=== PATIENT | male | born 1985 | race Hispanic/Latino ===

== ENCOUNTER 2017-12-20 08:53 | Emergency (ER) | payer MEDICAID ==
[2017-12-20 09:02] VITALS: BP 117/77; PULSE 89; RESP 20; TEMP 98.3; O2SAT 97
--- NOTE | 2017-12-20 09:23 | C.PDOC ---
History Of Present Illness 32 year old male with no significant past medical history presented with left wrist pain. Pt denies any fall or trauma but admits to lifting boxes at work. He denies any numbness or weakness. He has no skin discoloration or swelling. Chief Complaint (Nursing): Upper Extremity Problem/Injury History Per: Patient Onset/Duration Of Symptoms: Days, Sudden Onset Current Symptoms Are (Timing): Still Present Pain Scale Rating Of: 7 Recent travel outside of the [place]: No Additional History Per: Patient Past Medical History Reviewed: Historical Data, Nursing Documentation, Vital Signs Vital Signs: Last Vital Signs Temp 98.3 F 12/20/17 09:00 Pulse 89 12/20/17 09:00 Resp 20 12/20/17 09:00 BP 117/77 12/20/17 09:00 Pulse Ox 97 12/20/17 09:00 - Medical History PMH: No Chronic Diseases, Seizures Surgical History: No Surg Hx Family History: States: Unknown Family Hx - Social History Hx Tobacco Use: Yes Hx Alcohol Use: No Hx Substance Use: No - Immunization History Hx Tetanus Toxoid Vaccination: No Hx Influenza Vaccination: No Hx Pneumococcal Vaccination: No Review Of Systems Musculoskeletal: Positive for: Arm Pain, Other (left wrist pain ) Neurological: Negative for: Weakness, Numbness Physical Exam - Physical Exam Appears: Well Skin: Normal Color Head: Atraumatic Eye(s): bilateral: Normal Inspection, PERRL, EOMI Ear(s): Bilateral: Normal Nose: Normal Tongue: Normal Appearing Lips: Normal Appearing Gingiva: Normal Appearing Throat: Normal Neck: Normal Lymphatic: Deferred Chest: Symmetrical Cardiovascular: Rhythm Regular Respiratory: Normal Breath Sounds Gastrointestinal/Abdominal: Normal Exam Rectal: Deferred Back: Normal Inspection Extremity: Normal ROM Extremity: Left: Bony Point Tenderness, Bilateral: Atraumatic Pulses: Left Carotid: Normal, Right Carotid: Normal Neurological/Psych: Oriented x3, Normal Speech, Normal Cognition, Normal Cranial Nerves, Normal Motor, Normal Sensation, Normal Reflexes Gait: Steady Extremity: Right: No Drift, Left: No Drift ED Course And Treatment O2 Sat by Pulse Oximetry: 97 (on RA) Pulse Ox Interpretation: Normal - Other Rad left wrist pain X-Ray: Viewed By Me, Read By Radiologist Interpretation: Date of service: 12/20/2017. PROCEDURE: Left Wrist Radiographs. . HISTORY: Left wrist pain. COMPARISON: None. FINDINGS: BONES: Normal. No fracture. JOINTS: Normal. No dislocation. SOFT TISSUES: Normal. OTHER FINDINGS: None. IMPRESSION: Normal left wrist radiographs. Comments: Consider more sensitive evaluation with MRI of the left wrist if clinically indicated Disposition - Disposition Disposition: ELOPEMENT - ER ONLY Disposition Time: 09:30 Condition: GOOD Forms: [employer] (Swedish) - Clinical Impression Clinical Impression: Wrist pain - Scribe Statement The provider has reviewed the documentation as recorded by the Scribe (Myriam Lujan) Provider Attestation: All medical record entries made by the Scribe were at my direction and personally dictated by me. I have reviewed the chart and agree that the record accurately reflects my personal performance of the history, physical exam, medical decision making, and the department course for this patient. I have also personally directed, reviewed, and agree with the discharge instructions and disposition.
--- NOTE | 2017-12-20 10:23 | RAD ---
Date of service: 12/20/2017 PROCEDURE: Left Wrist Radiographs. HISTORY: Left wrist pain COMPARISON: None. FINDINGS: BONES: Normal. No fracture. JOINTS: Normal. No dislocation. SOFT TISSUES: Normal. OTHER FINDINGS: None. IMPRESSION: Normal left wrist radiographs. Comments: Consider more sensitive evaluation with MRI of the left wrist if clinically indicated
== END 2017-12-20 10:19 | disposition left against medical advice (07) ==
LOC: C.ER 08:53
DX: M25.532 Pain in left wrist (principal); Z72.0 Tobacco use